=== PATIENT | female | born 1995 | race African-American/Black ===

== ENCOUNTER 2017-09-29 20:25 | Emergency (ER) | payer OTHER ==
[2017-09-29 20:38] VITALS: BP 120/81; PULSE 96; TEMP 98.6; BMI 26.5
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
[2017-09-29 21:13] LABS: URINE APPEARANCE CLEAR; URINE BILIRUBIN NEGATIVE (NEGATIVE); URINE BLOOD NEGATIVE (NEGATIVE); URINE COLOR LTYELLOW; URINE GLUCOSE (UA) NEGATIVE (NEGATIVE); URINE KETONE NEGATIVE (NEGATIVE); URINE NITRITE NEGATIVE (NEGATIVE); URINE PROTEIN NEGATIVE (NEGATIVE); URINE UROBILINOGEN NEGATIVE mg/dL (0.2-1.0)
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
[2017-09-29] MEDS ORDERED: NAPROXEN 500 MG TABLET (FP) ONE (22:46)
[2017-09-29] MEDS ORDERED: NAPROXEN 500 MG TABLET (FP) PO ONE (22:51)
[2017-09-30 13:28] LABS: URINE LEUK ESTERASE Negative (NEGATIVE)
== END 2017-09-29 23:00 | disposition home or self-care (01) ==
LOC: JERFT 20:25
DX: S16.1XXA Strain of muscle, fascia and tendon at neck level, initial encounter (principal); V43.62XA Car passenger injured in collision with other type car in traffic accident, initial encounter; Y92.414 Local residential or business street as the place of occurrence of the external cause; Y93.89 Activity, other specified; Y99.8 Other external cause status
CPT/HCPCS: 72125-TC; 72131-TC; 81003; 84703; 99281-25

== ENCOUNTER 2018-08-18 15:09 | Emergency (ER) | payer OTHER ==
[2018-08-18 15:15] VITALS: BP 117/75; PULSE 100; TEMP 98.1; BMI 26.9
--- NOTE | 2018-08-18 15:18 | PDOC ---
Rapid Medical Evaluation Chief Complaint: Pain Time Seen by Provider: 08/18/18 15:13 Medical Evaluation: Allergies Allergy/AdvReac Type Severity Reaction Status Date / Time No Known Drug Allergies Allergy Verified 08/18/18 15:12 08/18/18 15:13 Pt presents to the ED for back pain and abdominal pain. Pt states she has abdominal pain in her whole stomach and is very nauseous. 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 Was evaluated at [facility] yesterday and was evaluated for kidney stones, but her testing was normal. Pt states her ob recommended a CT scan so she presents to the ED. Exam: Generalized abdominal pain with no focal findings. Abdomen is soft Orders: Labs, Urine, IV Pt to proceed to ED for further evaluation Discharge Disposition - Diagnosis Abdominal pain - Referrals Referrals: Linda Jones MD [Primary Care Provider] - - Patient Instructions - Post Discharge Activity
--- NOTE | 2018-08-18 16:01 | PDOC ---
History of Present Illness - General Chief Complaint: Pain Stated Complaint: ABD PAIN Time Seen by Provider: 08/18/18 15:13 History Source: Patient Exam Limitations: No Limitations - History of Present Illness Initial Comments: 08/18/18 16:00 CHIEF COMPLAINT: Abdominal pain HISTORY OF PRESENT ILLNESS: REVIEW OF SYSTEMS: GENERAL/CONSTITUTIONAL: No fever or chills. No weakness. No weight change. HEAD, EYES, EARS, NOSE AND THROAT: No change in vision. No ear pain or discharge. No sore throat. CARDIOVASCULAR: No chest pain or palpitations. RESPIRATORY: No cough, wheezing, or shortness of breath. GASTROINTESTINAL: No nausea, vomiting, diarrhea or constipation. GENITOURINARY: No dysuria, frequency, or change in urination. MUSCULOSKELETAL: No joint or muscle swelling or pain. No neck or back pain. SKIN: No rash or easy bruising. NEUROLOGIC: No headache, vertigo, loss of consciousness, or loss of sensation. PSYCHIATRIC: No depression or anxiety. ENDOCRINE: No increased thirst. No abnormal weight change. HEMATOLOGIC/LYMPHATIC: No anemia, easy bleeding, or history of blood clots. ALLERGIC/IMMUNOLOGIC: No hives or skin allergy. No latex allergy. PHYSICAL EXAM: GENERAL: The patient is awake, alert, and fully oriented, in no acute distress. HEAD: Normal with no signs of trauma. ENT: Pupils equal, round and reactive to light, extraocular movements intact, sclera anicteric, conjunctiva clear. Neck supple. LUNGS: Clear to auscultation bilaterally. Normal excursion. No respiratory distress or use of accessory muscles. CV: RRR, S1/S2, no MRG. Cap refill < 2 sec. ABDOMEN: Soft, non-distended, non-tender. EXTREMITIES: Normal range of motion, no edema. NEUROLOGICAL: Normal speech, normal gait. CN II-XII grossly intact. PSYCH: Normal mood, normal affect. SKIN: Warm, dry, normal turgor, no rashes or lesions noted. Past History - Past Medical History Allergies/Adverse Reactions: Allergies Allergy/AdvReac Type Severity Reaction Status Date / Time No Known Drug Allergies Allergy Verified 08/18/18 15:12 Home Medications: Ambulatory Orders Pregabalin [Lyrica] 100 mg PO TID 10/13/16 Naproxen [Naprosyn -] 500 mg PO BID PRN #14 tablet 09/29/17 Anemia: Yes Asthma: No Cancer: No Cardiac Disorders: Yes (MURMUR) CVA: No COPD: No CHF: No Dementia: No Diabetes: No GI Disorders: No Disorders: No HTN: No Hypercholesterolemia: No Liver Disease: No Seizures: No Thyroid Disease: No - Surgical History Abdominal Surgery: No Appendectomy: No Cardiac Surgery: No Cholecystectomy: No Lung Surgery: No Neurologic Surgery: No Orthopedic Surgery: No - Immunization History Immunization Up to Date: Yes - Suicide/Smoking/Psychosocial Hx Smoking History: Never smoked Have you smoked in the past 12 months: No Number of Cigarettes Smoked Daily: 0 Hx Alcohol Use: No Drug/Substance Use Hx: No Substance Use Type: None Hx Substance Use Treatment: No *Physical Exam - Vital Signs Last Vital Signs Temp Pulse Resp BP Pulse Ox 98.1 F 100 H 18 117/75 97 08/18/18 15:13 08/18/18 15:13 08/18/18 15:13 08/18/18 15:13 08/18/18 15:13 *DC/Admit/Observation/Transfer Diagnosis at time of Disposition: Abdominal pain - Referrals Referrals: Linda Jones MD [Primary Care Provider] - - Patient Instructions - Post Discharge Activity
--- NOTE | 2018-08-18 16:07 | PDOC ---
History of Present Illness - General Chief Complaint: Pain Stated Complaint: ABD PAIN Time Seen by Provider: 08/18/18 15:13 - History of Present Illness Initial Comments: 08/18/18 16:56 23f with pmh of polymyalgia rheumatica presents to the ED for RLQ pain, right flank pain and nausea since yesterday. The pain is not associated with urination but is exacerbated upon laying flat. The pain somewhat radiates from her right costovertebral angle to her right lower quadrant. . She went to an urgent care yesterday which saw that her UA, xray and ultrasound were negative. Admits that she hasn't been able to eat due to her nausea. Feels bloated and gassy. Her lmp was last month, uses arm implant control. Denies hematuria, dysuria fever, chills, denies any vaginal discharge, bleeding or spotting. Has been able to move her bowels but less than usual. Able to pass gas. Past History - Past Medical History Allergies/Adverse Reactions: Allergies Allergy/AdvReac Type Severity Reaction Status Date / Time No Known Drug Allergies Allergy Verified 08/18/18 15:12 Home Medications: Ambulatory Orders Gabapentin 300 mg PO BID 08/18/18 Quetiapine Fumarate [Seroquel -] 25 mg PO BID 08/18/18 Anemia: Yes Asthma: No Cancer: No Cardiac Disorders: Yes (MURMUR) CVA: No COPD: No CHF: No Dementia: No Diabetes: No GI Disorders: No Disorders: No HTN: No Hypercholesterolemia: No Liver Disease: No Seizures: No Thyroid Disease: No - Surgical History Abdominal Surgery: No Appendectomy: No Cardiac Surgery: No Cholecystectomy: No Lung Surgery: No Neurologic Surgery: No Orthopedic Surgery: No - Immunization History Immunization Up to Date: Yes - Suicide/Smoking/Psychosocial Hx Smoking History: Never smoked Have you smoked in the past 12 months: No Number of Cigarettes Smoked Daily: 0 Hx Alcohol Use: No Drug/Substance Use Hx: No Substance Use Type: None Hx Substance Use Treatment: No Review of Systems - Review of Systems Able to Perform ROS?: Yes Is the patient limited Croatian proficient: No Constitutional: Yes: Loss of Appetite HEENTM: No: Symptoms Reported Respiratory: No: Symptoms reported Cardiac (ROS): No: Symptoms Reported ABD/GI: Yes: See HPI, Constipated, Nausea, Poor Appetite. No: Abd. Pain w/ defecation, Vomiting : Yes: See HPI, Frequency All Other Systems: Reviewed and Negative *Physical Exam - Vital Signs Last Vital Signs Temp Pulse Resp BP Pulse Ox 98.1 F 100 H 18 117/75 97 08/18/18 15:13 08/18/18 15:13 08/18/18 15:13 08/18/18 15:13 08/18/18 15:13 - Physical Exam General Appearance: Yes: Nourished, Appropriately Dressed. No: Apparent Distress HEENT: positive: EOMI, SMITH, Normal ENT Inspection Respiratory/Chest: positive: Lungs Clear, Normal Breath Sounds. negative: Chest Tender, Respiratory Distress Cardiovascular: positive: Regular Rhythm, Regular Rate, S1, S2 Gastrointestinal/Abdominal: positive: Normal Bowel Sounds, Tender (rlq at [place]), Flat, Soft, Guarding, Other (positive psoas sign) Musculoskeletal: positive: Normal Inspection, CVA Tenderness (R) Extremity: positive: Normal Capillary Refill, Normal Inspection Integumentary: positive: Normal Color, Dry Neurologic: positive: Fully Oriented, Alert, Normal Mood/Affect, Normal Response ED Treatment Course - LABORATORY CBC & Chemistry Diagram: 08/18/18 15:50 08/18/18 15:50 Medical Decision Making - Medical Decision Making 08/18/18 17:05 23f presenting with right flank and right lower right quadrant pain since yesterday with anorexia. Will rule out appendicitis vs kidney stone with abd/pelvic CT with IV and PO contrast. basic labs, test type and screen, IV NS, Zofran, Tylenol 08/18/18 20:45 CT pending 08/18/18 21:37 CT read: No evidence of appendicitis. 2.4 right ovarian cyst. 2.4x2cm cystic structure in the right inferior pelvis. 08/18/18 21:38 Patient feels better. wants to go home. will follow up with OBGYN. *DC/Admit/Observation/Transfer Diagnosis at time of Disposition: Abdominal pain, Ovarian cyst - Discharge Dispostion Disposition: HOME Condition at time of disposition: Good Decision to Admit order: No - Referrals Referrals: Linda Jones MD [Primary Care Provider] - - Patient Instructions Printed Discharge Instructions: DI for Ovarian Cyst Additional Instructions: Follow up with your OBGYN within the next 2 days. Come back to the ER immediately for any new, worsening or concerning symptom such as pain, fever, vaginal discharge or bleeding. - Post Discharge Activity Forms/Work/School Notes: Back to Work
[2018-08-18] MEDS ORDERED: ONDANSETRON 4 MG/2 ML VIAL IVPUSH ONE (16:32)
[2018-08-18] MEDS ORDERED: SODIUM CHLORIDE 1,000 ML IV STA ×2 (16:32→18:50)
[2018-08-18] MEDS ORDERED: ACETAMINOPHEN 1000 MG/100 ML VIAL (NON FORMULARY) IVPB ONE (16:32)
[2018-08-18 16:43] LABS: BASO % 0.6 % (0-2.0); EOS % 0.8 % (0-4.5); HEMATOCRIT 41.1 % (32.4-45.2); HEMOGLOBIN 13.8 GM/dL (10.7-15.3); MCH 28.2 pg (25.7-33.7); MCHC 33.5 g/dl (32.0-36.0); MEAN PLT VOLUME 10.5 fl (7.5-11.1); MONO % 7.2 % (3.8-10.2); NEUT % 58.4 % (42.8-82.8); PLATELET COUNT 255 K/MM3 (134-434); RDW 14.3 % (11.6-15.6); WHITE BLOOD COUNT 6.6 K/mm3 (4.0-10.0)
[2018-08-18] MEDS ORDERED: ACETAMINOPHEN INJECTION 100 ML IVPB ONE (16:45)
[2018-08-18] MEDS ORDERED: ONDANSETRON 4 MG/2 ML VIAL ONE (16:45)
[2018-08-18 16:59] LABS: INR 1.1 (0.83-1.09)
[2018-08-18 17:07] LABS: ALBUMIN 4.1 g/dl (3.4-5.0); ALK PHOS 101 U/L (45-117); ANION GAP 4 MMOL/L (8-16); BILIRUBIN,TOTAL 0.7 mg/dL (0.2-1); BLOOD UREA NITROGEN 6 mg/dL (7-18); CALCIUM 9.7 mg/dL (8.5-10.1); CHLORIDE 106 mmol/L (98-107); CO2 24 mmol/L (21-32); CREATININE 0.6 mg/dL (0.55-1.3); GLUCOSE,RANDOM 74 mg/dL (74-106); LIPASE 310 U/L (73-393); POTASSIUM 3.8 mmol/L (3.5-5.1); SGOT/AST 12 U/L (15-37); SGPT/ALT 17 U/L (13-61); SODIUM 135 mmol/L (136-145); TOT PROT 8.4 g/dl (6.4-8.2)
[2018-08-18 17:25] LABS: URINE APPEARANCE CLEAR; URINE BILIRUBIN NEGATIVE (<2.0 mg/dL); URINE COLOR YELLOW; URINE GLUCOSE (UA) NEGATIVE (NEGATIVE); URINE KETONE 2+ (NEGATIVE); URINE LEUK ESTERASE NEGATIVE (NEGATIVE); URINE NITRITE NEGATIVE (NEGATIVE); URINE PROTEIN NEGATIVE (NEGATIVE)
[2018-08-18 17:27] LABS: HCG,QUALITATIVE URINE Negative
--- NOTE | 2018-08-18 18:01 | PDOC ---
Attending Attestation - Resident Resident Name: Erik Nava - ED Attending Attestation I have performed the following: I have examined & evaluated the patient, The case was reviewed & discussed with the resident, I agree w/resident's findings & plan, Exceptions are as noted - HPI HPI: 08/18/18 18:56 The patient is a 23 year old female, with no significant past medical history, who presents to the emergency department with one day of right flank pain which radiates to her right lower quadrant with associated nausea, but denies vomiting. She states she had a small BM this morning which was difficult but non bloody. She states she had xrays and an US of the kidneys at a urgent care yesterday which she reports was normal, but does not present with the report. She also reports having a negative transvaginal US at her [facility] today which was also reportedly negative. She presents for persistent pain. The patient denies chest pain, shortness of breath, headache and dizziness. The patient denies fever, chills, vomit, diarrhea and constipation. The patient denies dysuria, frequency, urgency and hematuria. Denies vaginal bleeding, discharge. Allergies: NKDA Social history: denies toxic habits PCP - Dr. Jones - Physicial Exam PE: 08/18/18 18:57 GENERAL: Awake, alert, and fully oriented, in no acute distress EYES: sclera anicteric, conjunctiva clear ENT: dry MM NECK: Normal ROM, supple LUNGS: Breath sounds equal, clear to auscultation bilaterally. No wheezes, and no crackles HEART: Regular rate and rhythm, normal S1 and S2, no murmurs, rubs or gallops ABDOMEN: Soft, +RLQ ttp, normoactive bowel sounds. No guarding, no rebound. No masses. No CVAT EXTREMITIES: Normal range of motion, no edema. No clubbing or cyanosis. No cords, erythema, or tenderness NEUROLOGICAL: Normal speech, cranial nerves intact, 5/5 strength in all 4 extremities, normal sensation to light touch in all 4 extremities, normal gait SKIN: Warm, Dry, normal turgor, no rashes or lesions noted. - Medical Decision Making 08/18/18 18:58 23yo F presents with R flank and RLQ abd pain. Exam with RLQ ttp. Pelvic by Dr. Nava with some R adnexal discomfort but normal outpt TVUS per pt just prior to arrival. Ddx includes BNLT appendicitis vs UTI vs renal colic vs ovarian pathology. Unlikely torsion as pt is well appearing in NAD. Thus far, labs/UA neg. Pt comfortable. CTAP pending. Signed out to overnight attending for further mgmt/dispo.
[2018-08-18] MEDS ORDERED: morphine CARPU-JECT 4 MG/1 ML DISP.SYRIN IVPUSH ONE (18:50)
[2018-08-18] MEDS ORDERED: MORPHINE SULFATE 2 MG/ML VIAL ONE (19:39)
== END 2018-08-18 21:50 | disposition home or self-care (01) ==
LOC: JER 15:09
PROC: 3E0337Z Introduction of Electrolytic and Water Balance Substance into Peripheral Vein, Percutaneous Approach (ICD-10-PCS; principal; 2018-08-18)
PROC: 3E033NZ Introduction of Analgesics, Hypnotics, Sedatives into Peripheral Vein, Percutaneous Approach (ICD-10-PCS; 2018-08-18)
PROC: 3E033GC Introduction of Other Therapeutic Substance into Peripheral Vein, Percutaneous Approach (ICD-10-PCS; 2018-08-18)
DX: N83.201 Unspecified ovarian cyst, right side (principal); M35.3 Polymyalgia rheumatica
CPT/HCPCS: 36415; 74177-TC; 80053; 81003; 83690; 84703; 85025; 85610; 86850; 86900; 86901; 87086; 99282-25; J0131; J7030

== ENCOUNTER 2020-01-01 00:31 | Emergency (ER) | payer OTHER ==
[2020-01-01 00:35] VITALS: TEMP 98.2; BMI 26.5
[2020-01-01 02:42] LABS: PH,URINE 6.5 (5.0-8.0); URINE APPEARANCE CLEAR; URINE BILIRUBIN NEGATIVE (NEGATIVE); URINE COLOR YELLOW; URINE GLUCOSE (UA) NEGATIVE (NEGATIVE); URINE KETONE NEGATIVE (NEGATIVE); URINE LEUK ESTERASE NEGATIVE (NEGATIVE); URINE NITRITE NEGATIVE (NEGATIVE); URINE PROTEIN NEGATIVE (NEGATIVE); URINE UROBILINOGEN 0.2 mg/dL (0.2-1.0)
[2020-01-01] MEDS ORDERED: SODIUM CHLORIDE 0.9% 500 ML INFUS.BAG IV ONE ×2 (02:44→03:36)
[2020-01-01 02:56] LABS: BASO % 0.3 % (0-2.0); HEMATOCRIT 36.7 % (32.4-45.2); HEMOGLOBIN 12.5 GM/dL (10.7-15.3); LYMPH % 5.4 % (8-40); MCH 29.5 pg (25.7-33.7); MCHC 34.1 g/dl (32.0-36.0); MEAN CELL VOLUME 86.5 fl (80-96); MEAN PLT VOLUME 9.6 fl (7.5-11.1); MONO % 7.3 % (3.8-10.2); PLATELET COUNT 217 K/MM3 (134-434); RBC 4.25 M/mm3 (3.60-5.2); WHITE BLOOD COUNT 9.2 K/mm3 (4.0-10.0)
--- NOTE | 2020-01-01 03:12 | PDOC ---
Attending Attestation - Resident Resident Name: Robin Hernandez - ED Attending Attestation I have performed the following: I have examined & evaluated the patient, The case was reviewed & discussed with the resident, I agree w/resident's findings & plan - HPI HPI: 01/01/20 03:47 Pt comes with nausea and vomiting She has no fever here She is not She has no PMHX She was tachy on arrival EKG shows HR 88bpm - Physicial Exam PE: 01/01/20 03:48 Agree with resident exam - Medical Decision Making 01/01/20 03:48 labs normal CXR normal UZ normal EKG NSR pt got a L of NSS and feels great. Home with PMD follow up as needed Discharge - Discharge Information Problems reviewed: Yes Clinical Impression/Diagnosis: Vomiting and diarrhea, Gastroenteritis Condition: Improved Disposition: HOME - Follow up/Referral Referrals: Gregorio Hamilton MD [Primary Care Provider] - - Patient Discharge Instructions Patient Printed Discharge Instructions: Viral Gastroenteritis, Gastroenteritis Diet - Post Discharge Activity Work/Back to School Note: Back to Work
[2020-01-01 03:24] LABS: ALBUMIN 3.5 g/dl (3.4-5.0); ALK PHOS 83 U/L (45-117); ANION GAP 8 MMOL/L (8-16); BILIRUBIN,TOTAL 0.3 mg/dL (0.2-1); BLOOD UREA NITROGEN 7.1 mg/dL (7-18); CALCIUM 8.4 mg/dL (8.5-10.1); CHLORIDE 105 mmol/L (98-107); CO2 24 mmol/L (21-32); CREATININE 0.8 mg/dL (0.55-1.3); GLUCOSE,RANDOM 99 mg/dL (74-106); MAGNESIUM 1.8 mg/dL (1.8-2.4); POTASSIUM 3.7 mmol/L (3.5-5.1); SGOT/AST 17 U/L (15-37); SGPT/ALT 17 U/L (13-61); SODIUM 138 mmol/L (136-145); TOT PROT 7.4 g/dl (6.4-8.2)
[2020-01-01 04:03] VITALS: BP 126/83; PULSE 87
--- NOTE | 2020-01-01 04:04 | PDOC ---
History of Present Illness - General Chief Complaint: Nausea/Vomiting Stated Complaint: PALPITATIONS Time Seen by Provider: 01/01/20 02:36 History Source: Patient Exam Limitations: No Limitations - History of Present Illness Initial Comments: 01/01/20 04:03 Kimberly Carrizales is a 24F with PMH bipolar depression on Risperidone and Seroquel presenting with palpitations. Has been having URI sx including congestion and cough for the last 4 days. Patient reports that she normally takes Risperidal and Seroquel, but sometimes when she goes out to drink with her friends on the weekends she goff not take the medications because she does not like to mix them with alcohol consumption. Sto pped taking medications 2 days ago, went out for drinks yesterday, had bottomless margaritasfor brunch but did not eat any unusual foods or new alcohols. Went home feeling otherwise healthy. Yesterday took some DayQuil for cold sx, then about an hour after had chest pain and strong palpitations and felt like she was going to . Denies any nausea, vomiting, abdominal pain, urinary symptoms, constipation, diarrhea, fever, chills. Has taken DayQuil before without side effects. Has stopped taking psych meds for a few days without side effects in the past. No other sick contacts who went out with her. No prior cardiac history, but has had panic attacks before and this was similar. Reports her palpitations have decreased at this time, but is concerned about her heart. [place] in business [place] the city. Denies , has Nexplanon implant in L arm. Past History - Past Medical History Allergies/Adverse Reactions: Allergies Allergy/AdvReac Type Severity Reaction Status Date / Time No Known Drug Allergies Allergy Verified 01/01/20 00:32 Home Medications: Ambulatory Orders Gabapentin 300 mg PO BID 08/18/18 Quetiapine Fumarate [Seroquel -] 25 mg PO BID 08/18/18 Anemia: Yes Asthma: No Cancer: No Cardiac Disorders: Yes (MURMUR) CVA: No COPD: No CHF: No Dementia: No Diabetes: No GI Disorders: No Disorders: No HTN: No Hypercholesterolemia: No Liver Disease: No Psychiatric Problems: Yes Seizures: No Thyroid Disease: No - Surgical History Abdominal Surgery: No Appendectomy: No Cardiac Surgery: No Cholecystectomy: No Lung Surgery: No Neurologic Surgery: No Orthopedic Surgery: No - Immunization History Immunization Up to Date: Yes - Psycho Social/Smoking Cessation Hx Smoking History: Never smoked Have you smoked in the past 12 months: No Number of Cigarettes Smoked Daily: 0 Hx Alcohol Use: No Drug/Substance Use Hx: No Substance Use Type: None Hx Substance Use Treatment: No Review of Systems - Review of Systems Able to Perform ROS?: Yes Constitutional: No: Chills, Fever HEENTM: No: Nose Pain, Throat Pain, Difficulty Swallowing Respiratory: No: Cough, Shortness of Breath Cardiac (ROS): Yes: Chest Pain, Irregular Heart Rate, Palpitations. No: Edema, Lightheadedness, Syncope, Chest Tightness ABD/GI: No: Constipated, Diarrhea, Nausea, Poor Appetite, Poor Fluid Intake, Vomiting : No: Symptoms Reported Musculoskeletal: No: Symptoms Reported Integumentary: No: Symptoms Reported Neurological: No: Symptoms reported Psychiatric: Yes: Anxiety, Depression Endocrine: No: Symptoms Reported Hematologic/Lymphatic: No: Symptoms Reported All Other Systems: Reviewed and Negative *Physical Exam - Vital Signs Last Vital Signs Temp Pulse Resp BP Pulse Ox 98.2 F 127 H 20 121/79 98 01/01/20 00:32 01/01/20 00:32 01/01/20 00:32 01/01/20 00:32 01/01/20 00:32 - Physical Exam General Appearance: Yes: Nourished, Appropriately Dressed. No: Apparent Distress HEENT: positive: EOMI, SMITH, Normal Voice, Symmetrical, Pharynx Normal. negative: Scleral Icterus (R), Scleral Icterus (L), Pharyngeal Erythema, Tonsillar Exudate, Tonsillar Erythema Neck: positive: Trachea midline, Normal Thyroid, Supple. negative: Tender, Rigid, Lymphadenopathy (R), Lymphadenopathy (L) Respiratory/Chest: positive: Lungs Clear, Normal Breath Sounds. negative: Chest Tender, Respiratory Distress, Accessory Muscle Use, Crackles, Rales, Rhonchi, Stridor, Wheezing Cardiovascular: positive: Regular Rhythm, Regular Rate. negative: Murmur, Tachycardia Gastrointestinal/Abdominal: positive: Normal Bowel Sounds, Flat, Soft. negative: Tender, Organomegaly, Pulsatile Mass, Guarding, Rebound Musculoskeletal: positive: Normal Inspection. negative: CVA Tenderness, Vertebral Tenderness Extremity: positive: Normal Capillary Refill, Normal Inspection, Normal Range of Motion, Pelvis Stable. negative: Tender, Pedal Edema, Swelling Integumentary: positive: Normal Color, Dry, Warm Neurologic: positive: Fully Oriented, Alert, Normal Mood/Affect, Normal Response ED Treatment Course - LABORATORY CBC & Chemistry Diagram: 01/01/20 02:45 01/01/20 02:45 - ADDITIONAL ORDERS Additional order review: Laboratory Results 01/01/20 01/01/20 01/01/20 02:45 02:30 02:00 Sodium 138 Potassium 3.7 Chloride 105 Carbon Dioxide 24 Anion Gap 8 BUN 7.1 Creatinine 0.8 Est GFR (CKD-EPI)AfAm 118.76 Est GFR (CKD-EPI)NonAf 102.47 Random Glucose 99 Calcium 8.4 L Magnesium 1.8 Total Bilirubin 0.3 AST 17 ALT 17 Alkaline Phosphatase 83 Creatine Kinase 140 Troponin I < 0.02 Total Protein 7.4 Albumin 3.5 Serum , Qual Negative Urine Color Yellow Urine Appearance Clear Urine pH 6.5 Ur Specific Goodman 1.010 Urine Protein Negative Urine Glucose (UA) Negative Urine Ketones Negative Urine Blood Negative Urine Nitrite Negative Urine Bilirubin Negative Urine Urobilinogen 0.2 Ur Leukocyte Esterase Negative 01/01/20 02:00 Sodium Cancelled Potassium Cancelled Chloride Cancelled Carbon Dioxide Cancelled Anion Gap Cancelled BUN Cancelled Creatinine Cancelled Est GFR (CKD-EPI)AfAm Cancelled Est GFR (CKD-EPI)NonAf Cancelled Random Glucose Cancelled Calcium Cancelled Magnesium Cancelled Total Bilirubin Cancelled AST Cancelled ALT Cancelled Alkaline Phosphatase Cancelled Creatine Kinase Cancelled Troponin I Cancelled Total Protein Cancelled Albumin Cancelled Serum , Qual Urine Color Urine Appearance Urine pH Ur Specific Goodman Urine Protein Urine Glucose (UA) Urine Ketones Urine Blood Urine Nitrite Urine Bilirubin Urine Urobilinogen Ur Leukocyte Esterase 01/01/20 01/01/20 02:45 02:00 RBC 4.25 Cancelled MCV 86.5 Cancelled MCHC 34.1 Cancelled RDW 13.0 Cancelled MPV 9.6 Cancelled Neutrophils % 87.0 H D Cancelled Lymphocytes % 5.4 L D Cancelled Monocytes % 7.3 Cancelled Eosinophils % 0.0 D Cancelled Basophils % 0.3 Cancelled - RADIOLOGY Radiology Studies Ordered: Category Date Time Status CHEST PA & LAT [RAD] Stat Radiology 01/01/20 02:24 Taken - Medications Given in the ED: ED Medications Discontinued Medications Generic Name Dose Route Start Last Admin Trade Name Freq PRN Reason Stop Dose Admin Sodium Chloride 500 ml 01/01/20 02:44 01/01/20 02:47 Normal Saline - IV 01/01/20 02:45 500 ml ONCE ONE Administration Sodium Chloride 1,000 ml 01/01/20 03:36 01/01/20 03:37 Normal Saline - IV 01/01/20 03:37 1,000 ml ONCE ONE Administration Medical Decision Making - Medical Decision Making 01/01/20 04:10 Patient presents with palpitations in the setting of recent alcohol use, DayQuil use, and withholding of psych medications. No personal cardiac history, denies any cocaine or other drug use. Most likely dehydration vs. DayQuil side effect vs. hangover vs. anxiety attack. Evaluating for most concerning cardiac etiology, arrhythmia. DVT considered but unlikely. VS show tachycardia on arrival but not noted on exa. No active chest pain, patient feeling otherwise well. CBC/CMP/CP/ECG/CXR obtained for evaluation of arrhythmia, ACS, PNA. Serum preg for eval . All labs and CXR returned without abnormality. ECG shows NSR with HR 88, QRS 70, QTc 445, no concerning ischemic findings. Presentation consistent with gastroenteritis, needs f/u with PMD for eval arrhythmia Patient re-evaluated by attending and discharged with normal VS. Discharge - Discharge Information Problems reviewed: Yes Clinical Impression/Diagnosis: Vomiting and diarrhea, Gastroenteritis Condition: Improved Disposition: HOME - Admission No - Follow up/Referral Referrals: Gregorio Hamilton MD [Primary Care Provider] - - Patient Discharge Instructions Patient Printed Discharge Instructions: Viral Gastroenteritis, Gastroenteritis Diet - Post Discharge Activity Work/Back to School Note: Back to Work
--- NOTE | 2020-01-01 09:16 | EKG ---
Test Reason : Blood Pressure : / mmHG Vent. Rate : 088 BPM Atrial Rate : 088 BPM P-R Int : 156 ms QRS Dur : 070 ms QT Int : 368 ms P-R-T Axes : 065 047 033 degrees QTc Int : 445 ms NORMAL SINUS RHYTHM POSSIBLE LEFT ATRIAL ENLARGEMENT BORDERLINE ECG WHEN COMPARED WITH ECG OF 08-JUN-2016 16:52, NO SIGNIFICANT CHANGE WAS FOUND Confirmed by Tho Oneil ([id number]) on 01/01/2020 9:16:15 AM Referred By: Confirmed By:Tho Oneil
== END 2020-01-01 03:54 | disposition home or self-care (01) ==
LOC: JER 00:31
DX: K52.9 Noninfective gastroenteritis and colitis, unspecified (principal); F31.9 Bipolar disorder, unspecified
CPT/HCPCS: 36415; 71046-TC-FY; 80053; 81003; 82550; 83735; 84484; 84703; 85025; 87086; 93005; 93010; 99285-25

== ENCOUNTER 2022-07-06 21:22 | Emergency (ER) | payer OTHER ==
[2022-07-06 21:34] VITALS: TEMP 98.3; BMI 23.7
[2022-07-06] MEDS ORDERED: LACTATED RINGERS SOLUTION 1000 ML INFUS.BAG IV ONE (22:17)
[2022-07-06] MEDS ORDERED: ONDANSETRON 4 MG/2 ML VIAL IVPUSH ONE (22:47)
[2022-07-06] MEDS ORDERED: ONDANSETRON 4 MG/2 ML VIAL ONE (22:51)
[2022-07-06 22:56] LABS: BASO % 0.4 % (0-2.0); EOS % 0.2 % (0-4.5); HEMATOCRIT 40.4 % (32.4-45.2); HEMOGLOBIN 13.7 GM/dL (10.7-15.3); LYMPH % 24.7 % (8-40); MCH 29.2 pg (25.7-33.7); MEAN CELL VOLUME 85.9 fl (80-96); MEAN PLT VOLUME 9.3 fl (7.5-11.1); MONO % 7.1 % (3.8-10.2); NEUT % 67.6 % (42.8-82.8); PLATELET COUNT 249 10^3/uL (134-434); RDW 14.1 % (11.6-15.6)
[2022-07-06 23:10] LABS: CHLORIDE 104 mmol/L (98-107); SODIUM 140 mmol/L (136-145)
[2022-07-06 23:13] LABS: CALCIUM 9.3 mg/dL (8.5-10.1)
[2022-07-06 23:14] LABS: ALBUMIN 3.8 g/dl (3.4-5.0); ANION GAP 12 MMOL/L (8-16); BLOOD UREA NITROGEN 10.6 mg/dL (7-18); CO2 24 mmol/L (21-32); GLUCOSE,RANDOM 92 mg/dL (74-106); MAGNESIUM 1.8 mg/dL (1.8-2.4)
[2022-07-06 23:17] LABS: CREATININE 0.7 mg/dL (0.55-1.3); PHOSPHOROUS 3.3 mg/dL (2.5-4.9); SGOT/AST 11 U/L (15-37); SGPT/ALT 15 U/L (13-61)
[2022-07-06 23:18] LABS: BILIRUBIN,TOTAL 0.6 mg/dL (0.2-1); TOT PROT 7.7 g/dl (6.4-8.2)
[2022-07-06 23:20] LABS: ALK PHOS 83 U/L (45-117)
[2022-07-06 23:25] LABS: PH,URINE 6.5 (5.0-8.0); URINE APPEARANCE CLEAR; URINE BILIRUBIN NEGATIVE (NEGATIVE); URINE COLOR YELLOW; URINE GLUCOSE (UA) NEGATIVE (NEGATIVE); URINE KETONE 3+ (NEGATIVE); URINE LEUK ESTERASE NEGATIVE (NEGATIVE); URINE NITRITE NEGATIVE (NEGATIVE); URINE PROTEIN NEGATIVE (NEGATIVE); URINE UROBILINOGEN 0.2 mg/dL (0.2-1.0)
[2022-07-07 01:14] VITALS: BP 112/76; PULSE 87; RESP 20
== END 2022-07-07 01:15 | disposition home or self-care (01) ==
LOC: JER 21:22
PROC: 3E033GC Introduction of Other Therapeutic Substance into Peripheral Vein, Percutaneous Approach (ICD-10-PCS; principal; 2022-07-06)
DX: R11.10 Vomiting, unspecified (principal); R19.7 Diarrhea, unspecified
CPT/HCPCS: 36415; 80053; 81003; 83735; 84100; 84484; 84702; 85025; 87086; 93005; 93010; 99284-25

== ENCOUNTER 2023-12-20 18:03 | Emergency (ER) | payer OTHER ==
[2023-12-20 18:09] VITALS: BP 125/78; PULSE 95; RESP 20; TEMP 98.3; BMI 32.8
[2023-12-20] MEDS ORDERED: ONDANSETRON 4 MG/2 ML VIAL ONE (18:31)
[2023-12-20] MEDS ORDERED: ACETAMINOPHEN INJECTION 100 ML IVPB ONE (18:31)
[2023-12-20 18:57] LABS: BASO % 0.7 % (0-2.0); EOS % 0.9 % (0-4.5); HEMATOCRIT 39.6 % (32.4-45.2); HEMOGLOBIN 13.5 GM/dL (10.7-15.3); LYMPH % 20.4 % (8-40); MCH 29.4 pg (25.7-33.7); MEAN CELL VOLUME 86.5 fl (80-96); MEAN PLT VOLUME 9.4 fl (7.5-11.1); MONO % 6.4 % (3.8-10.2); NEUT % 71.6 % (42.8-82.8); PLATELET COUNT 265 10^3/uL (134-434); RBC 4.57 M/mm3 (3.60-5.2); RDW 14.5 % (11.6-15.6); WHITE BLOOD COUNT 9.8 K/mm3 (4.0-10.0)
[2023-12-20] MEDS: ONDANSETRON 4 MG/2 ML VIAL IVPUSH ONE (19:01)
[2023-12-20] MEDS: ACETAMINOPHEN 1000 MG/100 ML BAG IVPB ONE (19:01)
[2023-12-20] MEDS: SODIUM CHLORIDE 0.9% 500 ML INFUS.BAG IV ONE (19:01)
[2023-12-20 19:46] LABS: POTASSIUM 3.8 mmol/L (3.5-5.1)
[2023-12-20 19:49] LABS: ALBUMIN 3.3 g/dl (3.4-5.0); CALCIUM 8.3 mg/dL (8.5-10.1)
[2023-12-20 19:52] LABS: CREATININE 0.8 mg/dL (0.55-1.3)
[2023-12-20 19:53] LABS: BILIRUBIN,TOTAL 0.4 mg/dL (0.2-1)
[2023-12-20 19:54] LABS: TOT PROT 7.2 g/dl (6.4-8.2)
[2023-12-20 20:15] LABS: PH,URINE 6.5 (5.0-8.0); URINE APPEARANCE CLEAR; URINE BILIRUBIN NEGATIVE (NEGATIVE); URINE COLOR YELLOW; URINE GLUCOSE (UA) NEGATIVE (NEGATIVE); URINE KETONE NEGATIVE (NEGATIVE); URINE LEUK ESTERASE NEGATIVE (NEGATIVE); URINE NITRITE NEGATIVE (NEGATIVE); URINE PROTEIN NEGATIVE (NEGATIVE); URINE UROBILINOGEN 0.2 mg/dL (0.2-1.0)
== END 2023-12-20 22:25 | disposition home or self-care (01) ==
LOC: JER 18:03
PROC: 3E033NZ Introduction of Analgesics, Hypnotics, Sedatives into Peripheral Vein, Percutaneous Approach (ICD-10-PCS; principal; 2023-12-20)
PROC: 3E033GC Introduction of Other Therapeutic Substance into Peripheral Vein, Percutaneous Approach (ICD-10-PCS; 2023-12-20)
DX: K52.9 Noninfective gastroenteritis and colitis, unspecified (principal); R10.13 Epigastric pain; R10.11 Right upper quadrant pain; R53.1 Weakness; R11.2 Nausea with vomiting, unspecified; R19.7 Diarrhea, unspecified; Z20.822 Contact with and (suspected) exposure to COVID-19
CPT/HCPCS: 0241U-QW; 76705-TC; 80053; 81003; 83690; 84703; 85025; 87086; 93005; 93010; 96374; 96375; 99284-25; J0131

== ENCOUNTER 2024-07-07 15:16 | Emergency (ER) | payer OTHER ==
[2024-07-07 15:23] VITALS: BP 147/90; PULSE 101; RESP 18; TEMP 98.8; BMI 34.5
[2024-07-07] MEDS ORDERED: ACETAMINOPHEN INJECTION 100 ML ONE (16:26)
[2024-07-07 16:32] LABS: BASO % 0.6 % (0-2.0); EOS % 0.6 % (0-4.5); HEMATOCRIT 40.1 % (32.4-45.2); HEMOGLOBIN 13.5 GM/dL (10.7-15.3); LYMPH % 22.1 % (8-40); MCH 29.4 pg (25.7-33.7); MCHC 33.6 g/dl (32.0-36.0); MEAN CELL VOLUME 87.6 fl (80-96); MONO % 8.4 % (3.8-10.2); NEUT % 68.3 % (42.8-82.8); PLATELET COUNT 282 10^3/uL (134-434); RBC 4.58 M/mm3 (3.60-5.2); RDW 13.7 % (11.6-15.6); WHITE BLOOD COUNT 9.2 K/mm3 (4.0-10.0)
[2024-07-07] MEDS: ACETAMINOPHEN 1000 MG/100 ML BAG IVPB ONE (16:32)
[2024-07-07] MEDS: SODIUM CHLORIDE 1,000 ML IV STA (16:32)
[2024-07-07 16:50] LABS: POTASSIUM 3.8 mmol/L (3.5-5.1)
[2024-07-07 16:53] LABS: CALCIUM 9.3 mg/dL (8.5-10.1)
[2024-07-07 16:54] LABS: ALBUMIN 3.7 g/dl (3.4-5.0); BLOOD UREA NITROGEN 9.4 mg/dL (7-18)
[2024-07-07 16:57] LABS: CREATININE 0.8 mg/dL (0.55-1.3)
[2024-07-07 16:58] LABS: BILIRUBIN,TOTAL 0.4 mg/dL (0.2-1); TOT PROT 8.2 g/dl (6.4-8.2)
[2024-07-07 17:55] LABS: URINE APPEARANCE CLEAR; URINE BILIRUBIN NEGATIVE (NEGATIVE); URINE COLOR YELLOW; URINE GLUCOSE (UA) NEGATIVE (NEGATIVE); URINE KETONE NEGATIVE (NEGATIVE); URINE LEUK ESTERASE NEGATIVE (NEGATIVE); URINE NITRITE NEGATIVE (NEGATIVE); URINE PROTEIN NEGATIVE (NEGATIVE); URINE UROBILINOGEN 0.2 mg/dL (0.2-1.0)
[2024-07-07 17:57] LABS: HCG,QUALITATIVE URINE Negative
[2024-07-07] MEDS ORDERED: KETOROLAC TROMETHAMINE 15 MG/ML VIAL ONE (18:12)
[2024-07-07] MEDS ORDERED: LIDOCAINE 4% PATCH TP ONE (18:12)
[2024-07-07 18:13] LABS: INR 0.99 (0.83-1.09); PROTHROMBIN TIME (PATIENT) 11.4 SEC (9.7-13.0)
[2024-07-07 18:15] LABS: ACTIVATED PTT 28.6 SECONDS (25.2-36.5)
[2024-07-07] MEDS: KETOROLAC TROMETHAMINE 15 MG/ML VIAL IVPUSH ONE (18:41)
[2024-07-07] MEDS: LIDOCAINE 4% PATCH TP ONE (18:41)
[2024-07-07 22:54] LABS: HIV INTERPRETATION NEGATIVE (NEGATIVE)
== END 2024-07-07 19:40 | disposition home or self-care (01) ==
LOC: JER 15:16
PROC: 3E033NZ Introduction of Analgesics, Hypnotics, Sedatives into Peripheral Vein, Percutaneous Approach (ICD-10-PCS; principal; 2024-07-07)
PROC: 3E0333Z Introduction of Anti-inflammatory into Peripheral Vein, Percutaneous Approach (ICD-10-PCS; 2024-07-07)
PROC: 3E0337Z Introduction of Electrolytic and Water Balance Substance into Peripheral Vein, Percutaneous Approach (ICD-10-PCS; 2024-07-07)
DX: R07.89 Other chest pain (principal); M54.9 Dorsalgia, unspecified; R11.2 Nausea with vomiting, unspecified; R42 Dizziness and giddiness; R19.7 Diarrhea, unspecified; R50.9 Fever, unspecified; Z20.822 Contact with and (suspected) exposure to COVID-19
CPT/HCPCS: 0241U-QW; 36415; 71046-TC-FY; 80053; 81003; 84484; 84703; 85025; 85379; 85610; 85730; 86803; 87086; 87389; 93005; 93010; 99285-25; J0131